=== PATIENT | male | born 1960 | race Caucasian/White ===

== ENCOUNTER 2024-04-08 08:07 | Outpatient (CLI) | payer BC, SELFPAY ==
--- NOTE | ~2024-04-08 | MR_ITS ---
EXAMINATION: MR abdomen wo/w con DATE: 04/08/2024 09:05 INDICATION: Renal cyst. IPMN TECHNIQUE: Magnetic resonance imaging (MRI) of the abdomen was performed without and with 20 mL Multi julienne intravenous contrast. Sequences included coronal T2-weighted SS-FSE, coronal and axial FS 2D-F IESTA, axial STIR FSE, axial T2-weighted SS-FSE, axial T2-weighted FS SS-FSE, axial diffusion-weighte d SE, axial dual-echo T1-weighted FSPGR, and axial and coronal T1-weighted LAVA. Postcontrast axial T 1-weighted LAVA images were obtained in a time course. Postcontrast coronal T1-weighted LAVA images w ere obtained. COMPARISON: None. FINDINGS: Heart size is normal. No pericardial or pleural effusion. Multiple T2 hyperintense nonenhancing cysts scattered throughout the liver the largest measuring up to 1.8 cm. Gallbladder, spleen and bilateral adrenal glands are normal. There are multiple bilateral renal cysts the largest on the left measurin g 4.5 cm. There is a 2.5 cm cyst in the right kidney with a couple very thin internal septations cons istent with a benign Bosniak 2 lesion. 1.8 cm cystic lesion at the uncinate process of the pancreas w ithin which is a 7 mm nonenhancing low signal intensity nodule. No solid enhancing soft tissue compon ent. Common bile duct is normal and there is no intrahepatic ductal or ductal dilation. Main pancreat ic duct is also normal. Visualized portion of the bowels including the appendix are normal. Small fat -containing umbilical hernia. No pathologically enlarged abdominal or upper pelvic lymphadenopathy. B ones are unremarkable with normal marrow signal throughout. IMPRESSION: 1. 1.8 cm complex cystic lesion at the uncinate process of the pancreas with internal 7 mm nonenhanci ng nodule. The nonenhancing nodules suggest debris in setting of pseudocyst related to prior pancreat itis. The differential diagnosis includes intraductal papillary mucinous neoplasm (IPMN), mucinous cy stic neoplasm (MCN), and the less common serous cystadenoma and neuroendocrine tumor. Correlate for h istory of pancreatitis. Reviewed, dictated and finalized at location A. IMPRESSION: 1. 1.8 cm complex cystic lesion at the uncinate process of the pancreas with in ternal 7 mm nonenhancing nodule. The nonenhancing nodules suggest debris in set ting of pseudocyst related to prior pancreatitis. The differential diagnosis in cludes intraductal papillary mucinous neoplasm (IPMN), mucinous cystic neoplasm (MCN), and the less common serous cystadenoma and neuroendocrine tumor. Correl ate for history of pancreatitis.
== END 2024-04-08 08:08 | disposition home or self-care (01) ==
LOC: ANHIMG 08:15
PROVIDERS: PCP Student in an Organized Health Care Education/Training Program; Visit Provider Student in an Organized Health Care Education/Training Program
DX: K86.2 Cyst of pancreas (principal); D49.0 Neoplasm of unspecified behavior of digestive system
CPT/HCPCS: 74183; A9577